=== PATIENT | male | born 2000 ===

== ENCOUNTER 2025-01-17 14:36 | Emergency (ER) | payer SELFPAY ==
[2025-01-17 14:40] VITALS: BP 125/88
--- NOTE | 2025-01-17 14:54 | ED.GENMED ---
History of Present Illness
<Jacqueline Tovar PA-C - Last Filed: 01/17/25 18:03>
General
Chief Complaint: Musculo-Skeletal Complaint
Source: patient
Exam Limitations: none
Time Seen by Provider: 01/17/25 14:46
History of Present Illness
History of Present Illness:
24yoM with no significant past medical history presenting via EMS for evaluation of a left knee injury. 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 He felt a pop in his knee followed by severe pain. His knee cap was
deformed and he was concerned for a dislocation. No paresthesias. He was given 75mcg IV fentanyl prehospital. No prior injuries to the left knee.
Phy Exam
<Jacqueline Tovar PA-C - Last Filed: 01/17/25 18:03>
General Physical Exam
General Presentation: well appearing and mild distress
General Skin: warm and dry
General Habitus: normal
General Mental: alert
ENT Exam
ENT Exam: normocephalic
Musculoskeletal Exam
Musculoskeletal Exam: other (L knee: Obvious patellar dislocation noted with patellar displaced laterally. Unable to actively range knee joint 2/2 pain. 2+ DP pulse.)
Skin Exam
Skin Exam: normal color and warm/dry
Psychiatric Exam
Psychiatric Exam: normal mood/affect
Course
<Jacqueline Tovar PA-C - Last Filed: 01/17/25 18:03>
Orders/Labs/Results
Orders:
Orders
01/17/25 14:52
Knee Immobilizer Left-Treatmen ONCE
01/17/25 15:39
Ketorolac [Toradol] 15 mg IV NOW STA
01/17/25 16:19
Crutches-Treatment ONCE
01/17/25 16:25
CR Knee - Left 4 Or More View* Urgent
Comment:
Reason For Exam: left knee pain/patellar dislocation
Vital Signs
Initial and Last Documented VS:
Initial Vital Signs
Temp Pulse Resp BP Pulse Ox
97.6 F 92 18 125/88 99
01/17/25 14:40 01/17/25 14:40 01/17/25 14:40 01/17/25 14:40 01/17/25 14:40
Last Documented Vital Signs
Temp Pulse Resp BP Pulse Ox
97.6 F 92 18 125/88 99
01/17/25 14:40 01/17/25 14:40 01/17/25 14:40 01/17/25 14:40 01/17/25 14:40
[place];Ayah Monae PA-C - Last Filed: 01/17/25 17:44>
Orders/Labs/Results
Orders:
Orders
01/17/25 14:52
Knee Immobilizer Left-Treatmen ONCE
01/17/25 15:39
Ketorolac [Toradol] 15 mg IV NOW STA
01/17/25 16:19
Crutches-Treatment ONCE
01/17/25 16:25
CR Knee - Left 4 Or More View* Urgent
Comment:
Reason For Exam: left knee pain/patellar dislocation
Vital Signs
Initial and Last Documented VS:
Initial Vital Signs
Temp Pulse Resp BP Pulse Ox
97.6 F 92 18 125/88 99
01/17/25 14:40 01/17/25 14:40 01/17/25 14:40 01/17/25 14:40 01/17/25 14:40
Last Documented Vital Signs
Temp Pulse Resp BP Pulse Ox
97.6 F 92 18 125/88 99
01/17/25 14:40 01/17/25 14:40 01/17/25 14:40 01/17/25 14:40 01/17/25 14:40
Procedures
<Jacqueline Tovar PA-C - Last Filed: 01/17/25 18:03>
Joint/Fracture Reduction
Left patella:
Indication for procedure:: Dislocation
Procedure completed by: Jacqueline Tovar PA-C
Joint reduced: without anesthesia
Injury was: closed
Post reduction exam: stable
Capillary Refill: normal
Normal distal neurovascular exam?: Yes
Peripheral Pulses: dorsalis pedis (left): 2+
<Jacqueline Tovar PA-C - Last Filed: 01/17/25 18:03>
MDM/Problems Addressed
Differential Diagnosis Includes:
24yoM here with L knee pain after pivoting. There is an obvious patellar dislocation on exam with patella displaced laterally. LLE is neurovascularly intact. Patella reduced at bedside without difficulty with extension and medial traction. X-rays
ordered to r/o fracture and confirm reduction. Case signed out to Ayah Monae PA-C pending x-ray results. Will plan on knee immobilizer and outpatient orthopedic f/u.
<Ayah Monae PA-C - Last Filed: 01/17/25 17:44>
*Critical Care Note
Total Time (30-74mins, 75-104mins- exclusive of procedures): Not Applicable
<Ayah Monae PA-C - Last Filed: 01/17/25 17:44>
Update Note
Update Note:
5:43 PM
Ayah Monae PA-C
I received patient in signout. X-ray shows no evidence of fracture or dislocation. Discussed results with patient. Patient stable for discharge.
ED Attending Note
<Jacqueline Tovar PA-C - Last Filed: 01/17/25 18:03>
-
Portions of this chart may have been created with voice recognition software.� Occasional wrong word or��sound alike� substitutions may have occurred due to the inherent limitations of voice recognition software.
Discharge Plan
Departure
Patient Disposition: Home (Routine Discharge)
Date of Disposition: 01/17/25
Time of Disposition: 17:44
Patient with high blood pressure during this ER visit?: Yes
Condition: Good
Discharge Problem:
Closed dislocation of left patella
Instructions: Dislocated Kneecap (DC)
Referrals:
Shreyas Navarro MD [Family Provider] -
Kevin Ackerman MD [Active] -
Activity Restrictions/Additional Instructions:
Wear knee immobilizer. Apply ice to help with swelling. Take Tylenol and ibuprofen as needed for pain.
Please call on Sunday to schedule a follow-up with orthopedics.
Interventions
Interventions:
*Risk Screen - Suicide Last Done: 01/17/25 14:40
*General Assessment Last Done: 01/17/25 14:40
*Neglect/Abuse Screening Last Done: 01/17/25 14:40
*ED- Fall Risk Assessment Last Done: 01/17/25 14:40
*ED COVID-19 Vaccine History Last Done: 01/17/25 14:40
ED-Musculoskeletal Assessment Last Done: 01/17/25 14:40
Discharge Date and Time
Print Language: ETHIOPIAN
[2025-01-17] MEDS: TORADOL 15 MG IV (15:50)
== END 2025-01-17 18:37 | disposition home or self-care (01) ==
LOC: EMR 14:36
PROVIDERS: EMERGENCY PHYSICIAN Emergency Medicine; FAMILY PHYSICIAN Internal Medicine
DX: S83.005A Unspecified dislocation of left patella, initial encounter (principal); X58.XXXA Exposure to other specified factors, initial encounter
CPT/HCPCS: 99283; 29505; 96374; 73564